=== PATIENT | male | born 1960 | race Caucasian/White ===

== ENCOUNTER 2018-05-21 15:33 | Emergency (ER) | payer SELFPAY ==
[~2018-05-21] VITALS: Ht 170.2 cm; Wt 63.5 kg
[2018-05-21 15:43] VITALS: BP 134/82
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
[2018-05-21] MEDS ORDERED: IBUPROFEN 600 MG TABLET. PO ONE (16:00)
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
[2018-05-21] MEDS ORDERED: LIDOCAINE (700MG/PATCH) PATCH. TD SCH (17:00)
[2018-05-21] MEDS ORDERED: PATCH REMOVAL. MC SCH (21:00)
== END 2018-05-21 17:03 | disposition home or self-care (01) ==
LOC: ER 15:33
DX: S16.1XXA Strain of muscle, fascia and tendon at neck level, initial encounter (principal); S59.802A Other specified injuries of left elbow, initial encounter; R51 Headache; F10.20 Alcohol dependence, uncomplicated; Y90.9 Presence of alcohol in blood, level not specified; V43.62XA Car passenger injured in collision with other type car in traffic accident, initial encounter; Y93.89 Activity, other specified; Y92.410 Unspecified street and highway as the place of occurrence of the external cause; Y99.8 Other external cause status
CPT/HCPCS: 72125; 73080; 99284